=== PATIENT | female | born 1985 | race Hispanic/Latino ===

== ENCOUNTER 2017-09-14 07:39 | Outpatient (CLI) | payer OTHER | END 2017-09-14 07:40 | disposition home or self-care (01) | LOC: BICULT 07:39 | PROVIDERS: ATTEND Family Medicine | DX: Z34.92 Encounter for supervision of normal pregnancy, unspecified, second trimester (principal); Z3A.20 20 weeks gestation of pregnancy | CPT/HCPCS: 76805 ==

== ENCOUNTER 2018-02-03 06:54 | Inpatient (IN) | payer OTHER ==
[2018-02-03] MEDS ORDERED: NS / Oxytocin 40 units/1000ml 1,000 ML IV PRN (08:02)
[2018-02-03] MEDS ORDERED: Ondansetron HCl/PF 4 MG/2 ML Vial IVP PRN ×2 (08:02→11:16)
[2018-02-03] MEDS ORDERED: Lidocaine 1% (PF) 30 ML VIAL SC PRN (08:02)
[2018-02-03] MEDS ORDERED: Promethazine HCl 25 MG/ML VIAL IM PRN ×2 (08:02→11:16)
[2018-02-03] MEDS ORDERED: Docusate 100 MG CAP PO PRN (08:02)
[2018-02-03] MEDS ORDERED: Ibuprofen 800 MG TAB PO PRN (08:02)
[2018-02-03] MEDS: Lactated Ringer's 1,000 ML IV SCH ×3 (08:14→20:03)
[2018-02-03 08:48] LABS: Hemoglobin 12.8 g/dL (12.0-16.0); Mean Corpuscular HGB CONC 34.4 g/dL (32.0-36.0); Mean Corpuscular Hemoglobin 32.2 pg (27.0-31.0); Mean Corpuscular Volume 93.6 fL (78.0-98.0); Platelet Count 216 thou/uL (130-400); RBC Distribution Width 13.1 % (11.5-14.5); Red Blood Cell (RBC) Count 3.98 mill/uL (4.20-5.40); White Blood Cell (WBC) Count 7.5 thou/uL (4.8-10.8)
[2018-02-03] MEDS ORDERED: Bupivacaine 0.25% HCL 30 ML VIAL ONE (09:00)
[2018-02-03] MEDS ORDERED: Bupivacaine HCl 0.5%/Epinephrine 1:200,000/PF 30 ml Vial ONE (09:00)
[2018-02-03 09:27] LABS: Syphilis Antibody Nonreactive (Nonreactive); Syphilis Antibody Index 0.02 S/CO (<1.00 Non-Reactive)
[2018-02-03 09:33] LABS: HBSAg Index 0.21 S/CO (0-0.99); Hep B Surf Ag Non-Reactive S/CO (NonReactive)
[2018-02-03 09:40] VITALS: BMI 38.7
[2018-02-03] MEDS: NS w/ Oxytocin 10 units 500 ML IV SCH ×2 (10:01→19:15)
[2018-02-03] MEDS ORDERED: Fentanyl 4 mcg/Bup 0.1% Cadd 100 ML ONE ×2 (10:18→19:56)
[2018-02-03] MEDS ORDERED: diphenhydrAMINE 50 MG/ML VIAL IVP PRN (11:16)
[2018-02-03] MEDS ORDERED: ePHEDrine/0.9% NaCl/PF SYRINGE 50 mg/10 ml SLOW IVP PRN (11:16)
[2018-02-03] MEDS ORDERED: Lactated Ringer's 500 ML IV PRN (11:16)
[2018-02-03] MEDS ORDERED: Eucerin (Mineral Oil/Petrolatum,White) 30 gm Jar TOP PRN (11:16)
[2018-02-03] MEDS ORDERED: Naloxone HCl 0.4 mg/ml Vial IVP PRN ×2 (11:16)
[2018-02-03] MEDS ORDERED: Acetaminophen 325 MG TAB PO PRN (11:16)
[2018-02-03] MEDS ORDERED: Fentanyl 4 mcg/Bupivacaine 0.1% Cassette 100 ML EPIDURAL SCH (11:30)
[2018-02-03] MEDS ORDERED: Communication Order-Pharmacy FS SCH (11:30)
--- NOTE | 2018-02-03 13:37 | PDOC.EVN ---
Event Note - Event Note Event Note: Seen at bedside to place cooks balloon. Epidural done and patient comfortable. Cooks cervical balloon placed without difficulty. SVE 2/60/-2. CTX Q2-5 minutes. Pitocin just increased to 6 miliunits. FWB category I.GBS negative.
[2018-02-03] MEDS ORDERED: Lidocaine 1% (PF) 30 ML VIAL ONE (21:27)
[2018-02-03] MEDS ORDERED: NS / Oxytocin 40 units/1000ml 1,000 ML ONE (21:27)
[2018-02-04] MEDS ORDERED: Fentanyl 4 mcg/Bup 0.1% Cadd 100 ML ONE (01:53)
[2018-02-04] MEDS: Lactated Ringer's 1,000 ML IV SCH (02:00)
[2018-02-04] MEDS ORDERED: Ondansetron HCl/PF 4 MG/2 ML Vial IVP PRN (08:59)
[2018-02-04] MEDS ORDERED: Bisacodyl 10 MG SUPP PR PRN (08:59)
[2018-02-04] MEDS ORDERED: Milk Of Magnesia 30 ML UDCUP PO PRN (08:59)
[2018-02-04] MEDS ORDERED: Preparation H Ointment 28 GM TUBE PR PRN (08:59)
[2018-02-04] MEDS ORDERED: Lanolin Ointment 7 GM TUBE TOP PRN (08:59)
[2018-02-04] MEDS ORDERED: Benzocaine/Menthol 20-0.5% 60 ML CAN TOP PRN (08:59)
[2018-02-04] MEDS ORDERED: NS / Oxytocin 40 units/1000ml 1,000 ML IV SCH (09:00)
[2018-02-04] MEDS ORDERED: HYDROcodone/Acetaminophen 5/325 mg Tablet ONE (12:11)
[2018-02-04] MEDS ORDERED: HYDROcodone/Acetaminophen 5/325 mg Tablet PO PRN (12:18)
[2018-02-04] MEDS: HYDROcodone/Acetaminophen 5/325 mg Tablet PO PRN ×2 (12:19→20:26)
[2018-02-04] MEDS: Prenatal Vitamin 1 TAB PO SCH (12:20)
[2018-02-04] MEDS: Docusate Calcium (SURFAK) 240 MG CAP PO SCH ×2 (12:21→20:15)
[2018-02-04] MEDS ORDERED: Cyclobenzaprine 10 MG TAB PO SCH (13:30)
[2018-02-04] MEDS: Ibuprofen 800 MG TAB PO SCH ×3 (15:06→23:32)
[2018-02-04] MEDS: Ferrous Sulfate 325 MG TAB PO SCH (15:07)
--- NOTE | 2018-02-04 22:18 | DN ---
DATE OF DELIVERY: 02/04/2018 PREOPERATIVE DIAGNOSIS: Term intrauterine . POSTOPERATIVE DIAGNOSES: Term intrauterine as well as a first-degree perineal laceration. PROCEDURE PERFORMED: Normal spontaneous vaginal delivery and laceration repair. SURGEON: Tanisha Blackburn M.D. ANESTHESIA: Epidural. ESTIMATED BLOOD LOSS: Please see the nurse's notes for QBL. BRIEF DELIVERY SUMMARY: This is a 32-year-old G2, now P2 who presented for induction of labor 4 days past her due date. She was given Pitocin overnight, progressed very slowly, but did dilate to compl ete and pushing. She pushed very well and delivered a live female , head OA. Mouth and nares were bulb suctioned at the perineum. There was no nuchal cord, though the cord was tangled around th e body. Shoulders and body easily followed and the was dried and placed on mother's abdomen. Infant Apgars were 8 at 1 minute and 9 at 5 minutes. The umbilical cord was doubly clamped and cut and cord blood was sent for analysis. There was a first-degree perineal laceration, which was repair ed in standard running fashion using 2-0 Vicryl suture under epidural anesthesia with excellent hemos tasis. Placenta delivered spontaneously and intact with a 3-vessel umbilical cord. Uterine fundus w as firm following evacuation of the placenta. Mom and baby were left with the nurse in excellent con dition attempting to breast feed.
[2018-02-05] MEDS: Ibuprofen 800 MG TAB PO SCH ×3 (01:23→15:27)
[2018-02-05] MEDS: Ferrous Sulfate 325 MG TAB PO SCH (07:33)
[2018-02-05 08:12] VITALS: BP 101/59; TEMP 98.2
[2018-02-05] MEDS ORDERED: Adacel (T-DAP) 0.5 ML VIAL IM ONE (09:00)
[2018-02-05] MEDS: Prenatal Vitamin 1 TAB PO SCH (09:39)
[2018-02-05] MEDS: Docusate Calcium (SURFAK) 240 MG CAP PO SCH (09:39)
--- NOTE | 2018-02-05 12:43 | PDOC.PP ---
Post Progress Note Post Day #: 1 Subjective: Was having some back pain and cramping after delivery. doing better now. PO intake tolerated: yes Flatus: yes Ambulation: yes Vital Signs (12 hours) Temp Pulse Resp BP Pulse Ox 02/05/18 08:11 98.2 F 78 20 101/59 L 98 02/05/18 05:15 98.0 F 79 16 105/61 02/05/18 01:30 98.1 F 84 16 96/55 L Weight Weight 212 lb - Physical Examination General: NAD Cardiovascular: no m/r/g, RRR Respiratory: clear to auscultation bilaterally, non-labored breathing Abdominal: + bowel sounds, lochia, no distention, appropriately TTP Psychiatric: A&Ox3, normal affect Result Diagrams: 02/03/18 08:24 Additional Labs: Post Labs Blood Type A POSITIVE 02/03/18 08:24 Hep Bs Antigen Non-Reactive S/CO (NonReactive) 02/03/18 08:24 Rubella IgG Antibody 5.32 index (Immune >0.99) 02/03/18 08:24 (1) Vaginal delivery Code(s): O80 - ENCOUNTER FOR FULL-TERM UNCOMPLICATED DELIVERY Status: Acute - Assessment/Plan Routine PP care
== END 2018-02-05 16:10 | disposition home or self-care (01) | DRG 807 ==
LOC: L&D 06:54 → 3SW 02-04 11:05
PROVIDERS: ADMIT Family Medicine; ATTEND Family Medicine
PROC: 10E0XZZ Delivery of Products of Conception, External Approach (ICD-10-PCS; principal; 2018-02-04)
PROC: 3E033VJ Introduction of Other Hormone into Peripheral Vein, Percutaneous Approach (ICD-10-PCS; 2018-02-04)
DX: O48.0 Post-term pregnancy (principal); Z37.0 Single live birth; O70.0 First degree perineal laceration during delivery; Z3A.40 40 weeks gestation of pregnancy
CPT/HCPCS: 51702; 76815; 85027; 86762; 86780; 86850; 86900; 86901; 87340; C1726; J2001; J2405